=== PATIENT | male | born 1945 ===

== ENCOUNTER 2021-08-15 09:00 | Inpatient (IN) | payer OTHER ==
[~2021-08-15] VITALS: Ht 177.8 cm; Wt 84.8 kg
[2021-08-15] MEDS ORDERED: NORVASC2.5 M1 PO (09:49)
[2021-08-15] MEDS ORDERED: SIMVASTATIN40 MG PO (09:49)
[2021-08-15] MEDS ORDERED: ZESTRIL40 M1 PO (09:49)
[2021-08-15] MEDS ORDERED: TOPROL XL50 M1 PO (09:50)
[2021-08-22] MEDS ORDERED: BACTRIM DS TAB1 EACH PO (06:18)
[2021-08-22] MEDS ORDERED: INTEGRA PLUS C1 EACH PO (06:18)
[2021-08-22] MEDS ORDERED: XARELTO10 MG PO (06:18)
[2021-08-22] MEDS ORDERED: OXYC1TAB9 PO (06:19)
== END 2021-08-22 15:12 | DRG 470 ==
LOC: SURG 08-20 05:30 → O/R 08-20 05:30 → SURH 08-20 07:00 → O/R 08-20 09:42 → SURG 08-20 11:29 → SURH 08-20 15:15 → SURG 08-22 15:12
PROVIDERS: ADMIT Orthopaedic Surgery Sports Medicine; ATTEND Orthopaedic Surgery Sports Medicine
PROC: 0SRD0J9 Replacement of Left Knee Joint with Synthetic Substitute, Cemented, Open Approach (ICD-10-PCS; principal; 2021-08-20 07:00)
DX: M17.12 Unilateral primary osteoarthritis, left knee (principal)